=== PATIENT | female | born 1960 | race Caucasian/White ===

== ENCOUNTER 2020-09-16 08:00 | Outpatient (CLI) | payer OTHER ==
[~2020-09-16 08:00] MED LIST: CYCLOBENZAPRINE10 MG PO; KETO10TA2 PO; METFORMIN HCL850 MG; ORPHENADRINE C100 MG PO; SIMVASTATIN40 MG; SYNTHROID175 MCG
== END 2020-09-16 08:11 | disposition home or self-care (01) ==
LOC: SONOGRAMA 08:00 → MAMO-SONO 08:30
PROVIDERS: ATTEND Obstetrics & Gynecology
DX: R31.9 Hematuria, unspecified (principal); N95.0 Postmenopausal bleeding

== ENCOUNTER 2020-11-18 07:53 | Outpatient (CLI) | payer OTHER | END 2020-11-18 13:51 | disposition home or self-care (01) | LOC: TOM 07:53 | PROVIDERS: ATTEND Urology | DX: R31.21 Asymptomatic microscopic hematuria (principal) | CPT/HCPCS: 74178; Q9965 ==

== ENCOUNTER 2024-04-06 14:13 | Emergency (ER) | payer OTHER ==
[~2024-04-06] VITALS: Ht 165.1 cm; Wt 57.6 kg
[2024-04-06] MEDS ORDERED: SUMATRIPTAN SUCCINATE 6 MG/0.5 ML VIAL SUBCUTANEO ONE (15:00)
[2024-04-06 16:10] LABS: HEMATOCRIT 37.5 % (36.0-45.00); HEMOGLOBIN 12.5 g/dL (12.0-15.00); MEAN CELL VOLUME 87.8 fL (80.00-100.00); MEAN CORPUSCULAR HEMOGLOBIN 29.3 pg (27.00-32.0); MEAN CORPUSCULAR HGB CONC 33.4 g/dl (32.0-36.0); PLATELET COUNT 227 K/uL (150-450); RED BLOOD COUNT 4.27 M/uL (4.00-6.00); RED CELL DISTRIBUTION WIDTH 14.7 % (11.5-14.5)
[2024-04-06 16:35] LABS: ALBUMIN 3.7 gm/dL (3.4-5.0); BILIRUBIN TOTAL 0.31 mg/dL (0.3-1.2); CALCIUM 9.1 mg/dL (8.5-10.1); CREATININE SERUM 0.82 mg/dL (0.55-1.02); GFR 70.41; GLOBULINA 3.4 G/DL (2.4-3.5); POTASSIUM 3.86 mEq/L (3.5-5.1); TOTAL PROTEIN 7.1 gm/dL (6.4-8.2)
== END 2024-04-06 23:03 | disposition home or self-care (01) ==
LOC: ER 14:15
PROVIDERS: General Practice
DX: R51.9 Headache, unspecified (principal); Z20.822 Contact with and (suspected) exposure to COVID-19; I10 Essential (primary) hypertension; E03.8 Other specified hypothyroidism; E11.9 Type 2 diabetes mellitus without complications; Z79.84 Long term (current) use of oral hypoglycemic drugs
CPT/HCPCS: 36415; 70460; 99284; Q9965

== ENCOUNTER 2024-08-04 12:13 | Emergency (ER) | payer OTHER ==
[~2024-08-04] VITALS: Ht 165.1 cm; Wt 58.1 kg
[2024-08-04] MEDS ORDERED: ST. JOSEPH ASPI81 M2 PO (12:45)
[2024-08-04] MEDS ORDERED: PRASUGREL HCL10 MG PO (12:45)
[2024-08-04] MEDS ORDERED: METFORMIN HCL500 M4 PO (12:46)
[2024-08-04] MEDS ORDERED: IRON325 MG PO (12:46)
[2024-08-04] MEDS ORDERED: SYNTHROID150 MCG PO (12:46)
[2024-08-04] MEDS ORDERED: TRAMADOL HCL 50 MG TABLET PO ONE (13:30)
== END 2024-08-04 14:42 | disposition home or self-care (01) ==
LOC: ER 12:14
DX: S09.8XXA Other specified injuries of head, initial encounter (principal); X83.8XXA Intentional self-harm by other specified means, initial encounter; Y93.89 Activity, other specified; Y92.096 Garden or yard of other non-institutional residence as the place of occurrence of the external cause; Y99.8 Other external cause status; R51.9 Headache, unspecified; I10 Essential (primary) hypertension; E03.8 Other specified hypothyroidism; E11.9 Type 2 diabetes mellitus without complications; Z79.84 Long term (current) use of oral hypoglycemic drugs